=== PATIENT | male | born 1995 | race African-American/Black ===

== ENCOUNTER 2017-03-19 10:08 | Emergency (ER) | payer SELFPAY ==
[2017-03-19] MEDS ORDERED: Lidocaine 4% Cream 5 GM TUBE w/ Tegaderm ONE (10:49)
== END 2017-03-19 11:53 | disposition home or self-care (01) ==
LOC: ERS 10:08
DX: L02.01 Cutaneous abscess of face (principal); F17.210 Nicotine dependence, cigarettes, uncomplicated
CPT/HCPCS: 10060

== ENCOUNTER 2023-05-14 13:57 | Emergency (ER) | payer BC, OTHER ==
[2023-05-14] MEDS ORDERED: Acetaminophen 500 MG TAB ONE (15:17)
[2023-05-14 16:11] LABS: SARS-CoV-2 NAA Rapid Test Not Detected (NotDetected)
== END 2023-05-14 16:50 ==
LOC: ERS 13:57
DX: J06.9 Acute upper respiratory infection, unspecified (principal); F17.210 Nicotine dependence, cigarettes, uncomplicated; Z20.822 Contact with and (suspected) exposure to COVID-19
CPT/HCPCS: 99283

== ENCOUNTER 2023-06-20 17:09 | Emergency (ER) | payer BC ==
[2023-06-20] MEDS ORDERED: Ondansetron ODT 4 MG TAB ONE (17:28)
== END 2023-06-20 17:57 | disposition home or self-care (01) ==
LOC: ERS 17:09
DX: R11.2 Nausea with vomiting, unspecified (principal); F17.210 Nicotine dependence, cigarettes, uncomplicated
CPT/HCPCS: 99283; Q0162

== ENCOUNTER 2024-12-22 10:10 | Emergency (ER) | payer BC ==
[2024-12-22] MEDS ORDERED: Ketorolac Tromethamine 30 MG (1 mL) VIAL ONE (10:46)
== END 2024-12-22 11:50 | disposition home or self-care (01) ==
LOC: ERS 10:10
DX: M25.572 Pain in left ankle and joints of left foot (principal); I10 Essential (primary) hypertension; F17.210 Nicotine dependence, cigarettes, uncomplicated
CPT/HCPCS: 96372; 99283; J1885